=== PATIENT | female | born 1980 | race Two or more races ===

== ENCOUNTER 2017-06-11 14:46 | Emergency (ER) | payer SELFPAY ==
[~2017-06-11] VITALS: Ht 167.6 cm; Wt 54.4 kg
[2017-06-11 15:02] VITALS: BP 108/70
[2017-06-11 15:48] LABS: APPEARANCE,URINE CLEAR; KETONES,URINE NEGATIVE (NEGATIVE); LEUKOCYTE ESTERASE ,URINE 1+ (NEGATIVE); NITRITE,URINE NEGATIVE (NEGATIVE); PH,URINE 5 (4.5-8.0); PROTEIN,URINE NEGATIVE (NEGATIVE); UROBILINOGEN,URINE NORMAL MG/DL (0.0-1.0)
[2017-06-11 16:03] LABS: BACTERIA,URINE FEW /HPF; RBC,URINE 0-2 /HPF (0 - 2); SQUAMOUS EPITHELIAL CELL,UR FEW /LPF (NONE/OCC)
[2017-06-11 17:00] VITALS: BP 110/78
--- NOTE | 2017-06-11 23:43 | Emergency Room Report ---
History of Present Illness General Chief Complaint: General Complaint Source: Patient Present Illness HPI PT left prior to full evaluation by provider and discussing results of Urine testing. Allergies: Coded Allergies: No Known Allergies (Unverified , 06/11/17) Patient History Past Medical History: see triage record Reviewed Nursing Documentation: PMH: Agreed, PSxH: Agreed Nursing Documentation-PM Past Medical History: No Stated History Physical Exam Vital Signs Date Time Temp Pulse Resp B/P (MAP) Pulse Ox O2 Delivery O2 Flow Rate FiO2 06/11/17 14:53 98.2 80 20 108/70 100 Room Air Medical Decision Making PA Attestation Dr. Victoria is my supervising Physician whom patient management has been discussed with. Diagnostic Impression: Primary Impression: History of episode of anxiety ER Course PT left prior to full evaluation by provider and discussing results of Urine testing. Labs Test 06/11/17 15:10 Urine Color Pale yellow Urine Appearance Clear Urine pH 5 (4.5-8.0) Urine Specific [place] 1.010 (1.005-1.035) Urine Protein Negative (NEGATIVE) Urine Glucose (UA) Negative (NEGATIVE) Urine Ketones Negative (NEGATIVE) Urine Occult Blood Negative (NEGATIVE) Urine Nitrite Negative (NEGATIVE) Urine Bilirubin Negative (NEGATIVE) Urine Urobilinogen Normal MG/DL (0.0-1.0) Urine Leukocyte Esterase 1+ (NEGATIVE) Urine RBC 0-2 /HPF (0 - 2) Urine WBC 2-4 /HPF (0 - 2) Urine Squamous Epithelial Cells Few /LPF (NONE/OCC) Urine Bacteria Few /HPF (NONE) Urine HCG, Qualitative Negative Urine Opiates Screen Negative (NEGATIVE) Urine Barbiturates Screen Negative (NEGATIVE) Phencyclidine (PCP) Screen Negative (NEGATIVE) Urine Amphetamines Screen Negative (NEGATIVE) Urine Benzodiazepines Screen Negative (NEGATIVE) Urine Cocaine Screen Negative (NEGATIVE) Urine Marijuana (THC) Screen Negative (NEGATIVE) Last Vital Signs Date Time Temp Pulse Resp B/P (MAP) Pulse Ox O2 Delivery O2 Flow Rate FiO2 06/11/17 17:00 97.8 80 20 110/78 99 Room Air Disposition: ELOPED Condition: Unknown Referrals: NOT CHOSEN IPA/,REFERRING (PCP) Riddhi Angeles Jun 11, 2017 23:43
== END 2017-06-11 17:00 | disposition left against medical advice (07) ==
LOC: EMR 15:45
DX: F41.9 Anxiety disorder, unspecified (principal)
CPT/HCPCS: 80306; 81003; 81025; 99283